=== PATIENT | female | born 1960 | race Two or more races ===

== ENCOUNTER 2016-12-30 05:26 | Day surgery (SDC) | payer OTHER ==
[2016-12-29 11:32] VITALS: BMI 32.6
[~2016-12-30 05:26] MED LIST: LIDOCAINE 1%/EPI 1:100000 (50 ML MULTI DOSE VIAL) INF ONE
[2016-12-30] MEDS ORDERED: LIDOCAINE 1%/EPI 1:100000 (50 ML MULTI DOSE VIAL) ONE (09:05)
--- NOTE | 2016-12-30 09:23 | HP ---
History & Physical Update - History History: No Change - Physical Physical: No Change - Assessment Assessment: No Change - Plan Plan: No Change
[2016-12-30] MEDS ORDERED: LIDOCAINE 1%/EPI 1:100000 (50 ML MULTI DOSE VIAL) INF ONE ×2 (10:02)
[2016-12-30] MEDS ORDERED: ONDANSETRON 4 MG/2 ML VIAL IVPUSH PRN (10:36)
[2016-12-30] MEDS ORDERED: LACTATED RINGERS SOLUTION 1,000 ML IV SCH (10:45)
--- NOTE | 2016-12-30 10:57 | OP ---
Operative Note - Note: Operative Date: 12/30/16 Pre-Operative Diagnosis: Infected right axillary cyst Operation: Excision, right axillary cyst Findings: infected cyst Post-Operative Diagnosis: Same as Pre-op Surgeon: Golden Neal Anesthesiologist/POTTERY STRIPER: Nishi Lewis Anesthesia: Local, MAC Specimens Removed: axillary cyst Estimated Blood Loss (mls): 2 Operative Report Dictated: Yes
[2016-12-30 11:38] VITALS: TEMP 97.7
[2016-12-30 13:13] VITALS: BP 100/64; PULSE 66
--- NOTE | 2016-12-31 06:53 | OP ---
DATE OF OPERATION: 12/30/2016 PROCEDURE: Excision of infected right axillary cyst. PREOPERATIVE DIAGNOSIS: Infected right axillary cyst. POSTOPERATIVE DIAGNOSIS: Infected right axillary cyst. SURGEON: Golden Neal MD ANESTHESIA: Local with sedation. FINDINGS ON PROCEDURE: This is a 56-year-old diabetic female who presents with pain, swelling, and redness of the cystic mass of the wide axilla anteriorly just beyond the hairline. So, patient on physical examination has a 2-cm erythematous tender and fluctuant mass of the said area and with a central sinus. So, patient was advised excision of the cyst with local anesthesia with sedation. Consent was obtained after discussing the risks, benefits, and alternatives of the procedure. DESCRIPTION OF PROCEDURE: Patient was brought to the operating room and placed in supine position, the right arm slightly topped to the side. The operative site was prepped and draped in the usual sterile fashion. Intravenous sedation was given by the anesthesia team. Using lidocaine 1% with epinephrine, field block anesthesia was administered. A 2 cm elliptical incision incorporating the central sinus was made using scalpel blade No. 15 with dissection carried down to the deep dermis. Further dissection using the Metzenbaum scissors to incorporate the cyst wall down to the subcutaneous tissue was done. During the maneuver, the cyst was inadvertently punctured, and a small amount of purulent material was drained. A sample was sent for culture and sensitivity studies. Cyst was then completed excised together with the ellipse of skin. The wound was kept copiously irrigated with sterile normal saline until the return was clear. A 0.125-inch Bebeto drain was deployed to the abscess cavity and anchored to the skin with nylon 3-0 suture. The wound was then closed with interrupted nylon 3-0 sutures in vertical mattress fashion. The wound was covered with sterile dressing. The patient was transferred to the post-anesthesia care unit in satisfactory condition. ESTIMATED BLOOD LOSS: About 2 mL. WOUND CLASS: Contaminated. Lisha [id number]
--- NOTE | 2016-12-31 14:47 | PATH ---
Surgical Pathology Report Patient Name: AMBER MCNAMARA [facility]. Rec. #: [id number] /Age/Gender: 1960 (Age: 56) / F Account: [id number] Location: [facility] SURGICAL Taken: 12/30/2016 Received: 12/30/2016 Reported: 12/31/2016 Physicians: Golden Neal M.D. Specimen(s) Received INFECTED RIGHT AXILLA SEBACEOUS CYST Clinical History Infected right axillary cyst Final Diagnosis SKIN AND SOFT TISSUE, RIGHT AXILLA, EXCISION: INFLAMED GRANULATION TISSUE WITH FOCAL FOREIGN BODY REACTION SUGGESTIVE OF RUPTURED EPIDERMAL INCLUSION CYST (KERATINOUS CYST). FAT NECROSIS PRESENT IN SURROUNDING ADIPOSE TISSUE. NO NEOPLASM IDENTIFIED. Electronically Signed Brandon Hinkle M.D. Gross Description Received in formalin labeled "right axilla sebaceous cyst infected," is a 2.7 x 1.5 x 1.5 cm irregular, unoriented portion of yellow, lobulated adipose tissue which is partially surfaced by a 1.3 x 0.4 cm aguilar, elliptical, unremarkable portion of skin. Sectioning reveals focal fibrous tissue and possible fat necrosis. No definite cyst is identified. [employer] sections are submitted in 3 cassettes. /12/30/2016 saudi/12/30/2016
== END 2016-12-30 13:13 | disposition home or self-care (01) ==
LOC: JASU-SURG 05:26
PROVIDERS: ATTEND Surgery
PROC: 0JB60ZX Excision of Chest Subcutaneous Tissue and Fascia, Open Approach, Diagnostic (ICD-10-PCS; principal; 2016-12-30 09:30)
DX: L72.0 Epidermal cyst (principal)
CPT/HCPCS: 87070; 87205; 88304-TC; 94760